=== PATIENT | male | born 1995 | race Hispanic/Latino ===

== ENCOUNTER 2016-10-07 13:38 | Emergency (ER) | payer BC ==
[2016-10-07 13:48] VITALS: RESP 18; O2SAT 99
[2016-10-07] MEDS ORDERED: Sodium Chloride 0.9% 1,000 ML IV STA (14:14)
--- NOTE | 2016-10-07 14:28 | ED PDOC ---
HPI: Hypertension/Hypotension Time Seen by Provider: 10/07/16 14:03 Chief Complaint (Nursing): Palpitations Chief Complaint (Provider): heart racing History Per: Patient History/Exam Limitations: no limitations Onset/Duration Of Symptoms: Days (about a week), Intermittent Episodes, Gradual Associated Symptoms: Dizziness. denies: Chest Pain, Dyspnea, Blurred Vision, Focal Weakness, Headache Quality Of Symptoms: Rapid Heart Rate Severity: Moderate Additional Complaint(s): Tachycardia intermittent for about a week. Had started generic version of aderrall xr (which he has been taking since 10yo) 2 weeks ago. when he stopped this medication 3 days ago, tachycardia resolved. Recurred yesterday when restarted the medication and he presented to [facility]. Blood tests performed and patient discharged. Presented to PMD's office today who sent him to ER for further evaluation, specifically concern for blood clot. 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 PMD Dr Brannon Garcia Past Medical History Reviewed: Historical Data, Nursing Documentation, Vital Signs Vital Signs: Last Vital Signs Temp 98.5 F 10/07/16 13:46 Pulse 102 H 10/07/16 13:46 Resp 18 10/07/16 13:46 BP 112/74 10/07/16 13:46 Pulse Ox 99 10/07/16 13:46 - Medical History Other PMH: ADHD - Surgical History Surgical History: No Surg Hx - Family History Family History: States: Other Other Family History: Father with blood clots - Social History Current smoker - smoking cessation education provided: No Alcohol: Social Drugs: Denies - Allergies Allergies/Adverse Reactions: Allergies Allergy/AdvReac Type Severity Reaction Status Date / Time No Known Allergies Allergy Verified 10/07/16 13:52 Review of Systems ROS Statement: Except As Marked, All Systems Reviewed And Found Negative (and as per HPI) Constitutional: Positive for: Weakness, Malaise Cardiovascular: Positive for: Palpitations, Light Headedness. Negative for: Chest Pain, Edema Respiratory: Negative for: Cough, Shortness of Breath, SOB with Exertion Physical Exam - Reviewed Nursing Documentation Reviewed: Yes Vital Signs Reviewed: Yes - Physical Exam Appears: Positive for: Non-toxic Head Exam: Positive for: NORMOCEPHALIC Skin: Positive for: Warm, Dry ENT: Negative for: Pharyngeal Erythema, Tonsillar Exudate Neck: Positive for: Painless ROM, Supple Cardiovascular/Chest: Positive for: Tachycardia (regular rhythm). Negative for : Murmur Respiratory: Positive for: Normal Breath Sounds. Negative for: Accessory Muscle Use, Rales, Wheezing, Respiratory Distress Gastrointestinal/Abdominal: Positive for: Soft. Negative for: Tenderness Back: Positive for: Normal Inspection. Negative for: Decreased ROM Extremity: Positive for: Normal ROM. Negative for: Calf Tenderness, Deformity Lymphatic: Negative for: Adenopathy Neurologic/Psych: Positive for: Alert. Negative for: Motor/Sensory Deficits - Laboratory Results Result Diagrams: 10/07/16 14:25 - ECG ECG Rhythm: Positive for: Normal ST Segment, Sinus Rhythm, Right Bundle Branch Block O2 Sat by Pulse Oximetry: 99 Pulse Ox Interpretation: Normal - Progress ED Course And Treament: Reviewed labs from ER visit to [facility]. CMP/CBC all normal. Thyroid tests were pending. Pt reports that PMD called hospital today and found out those tests were normal. Accession No. : [id number] Patient Name / ID : RORY MONIQUE / [id number] Exam Date : 10/07/2016 16:35:33 ( Approved ) Study Comment : Sex / Age : M / 20Y Creator : Brady Galvan MD Dictator : Brady Galvan MD Display Coordinator : Power Cleaner Operator : Brady Galvan MD Approver2 : Report Date : 10/07/2016 17:06:12 My Comment : PROCEDURE: CT Chest with contrast (Pulmonary Angiogram) HISTORY: tachycardia h/o hereditary coagulopathy COMPARISON: None available. TECHNIQUE: Axial computed tomography images were obtained of the chest in the pulmonary arterial phase of enhancement. Coronal and sagittal reformatted images were created and reviewed. Maximum intensity projection (MIP) reconstructed images in the following planes : Axial only Intravenous contrast dose: 90 cc Visipaque 320 Mean Hounsfield unit values in the main pulmonary artery: 211.4 Radiation dose: Total exam DLP = 387.00 mGy-cm. This CT exam was performed using one or more of the following dose reduction techniques: Automated exposure control, adjustment of the mA and/or kV according to patient size, and/or use of iterative reconstruction technique. FINDINGS: PULMONARY ARTERIES: Unremarkable. No pulmonary embolism. AORTA: No acute findings. No thoracic aortic aneurysm. LUNGS: Unremarkable. No nodule, mass or pulmonary consolidation. PLEURAL SPACES: Unremarkable. No effusion or pneuomothorax. HEART: Unremarkable. No cardiomegaly. No significant pericardial effusion. LYMPH NODES: No lymphadenopathy. BONES, CHEST WALL: Unremarkable. No fracture or destructive lesion OTHER FINDINGS: Unremarkable. IMPRESSION: Unremarkable CT pulmonary angiogram. No pulmonary embolus. Disposition - Clinical Impression Clinical Impression: Tachycardia Counseled Patient/Family Regarding: Studies Performed, Diagnosis, Need For Followup - Disposition Referrals: Remberto Garcia MD [Staff Provider] - Disposition: Routine/Home Disposition Time: 17:00 Condition: GOOD Additional Instructions: FOLLOW UP WITH DR GARCIA IN 1-2 DAYS. Instructions: Palpitations (ED), Amphetamine/Dextroamphetamine (By mouth) Forms: [facility] ED School/Work Excuse
[2016-10-07 15:25] LABS: PARTIAL THROMBOPLASTIN TIME 29.4 Seconds (25.6-37.1)
[2016-10-07 15:27] LABS: ALB/GLOB RATIO 1.7 (1.0-2.1); ALKALINE PHOSPHATASE 60 U/L (38-126); ALT/SGPT 36 U/L (21-72); AST/SGOT 24 U/L (17-59); BILIRUBIN,TOTAL 1.1 mg/dl (0.2-1.3); BLOOD UREA NITROGEN 10 mg/dl (9-20); CALCIUM 9.9 mg/dL (8.4-10.2); CARBON DIOXIDE 25 mmol/L (22-30); CHLORIDE 103 mmol/L (98-107); GFR AFRICAN-AMERICAN > 60; GLUCOSE,RANDOM 93 mg/dL (75-110); MAGNESIUM 1.9 MG/DL (1.6-2.3); PHOSPHOROUS 2.6 mg/dl (2.5-4.5); POTASSIUM 3.7 MMOL/L (3.6-5.0); SODIUM 140 mmol/l (132-148); TOTAL PROTEIN 7.8 G/DL (6.3-8.2)
[2016-10-07] MEDS ORDERED: Iodixanol 320 MG/ML 100 ML BOTTLE IV ONE (16:10)
[2016-10-07] MEDS ORDERED: Sodium Chloride 0.9% 50 ML IV ONE (16:10)
--- NOTE | 2016-10-07 17:08 | CT ---
PROCEDURE: CT Chest with contrast (Pulmonary Angiogram) HISTORY: tachycardia h/o hereditary coagulopathy COMPARISON: None available. TECHNIQUE: Axial computed tomography images were obtained of the chest in the pulmonary arterial phase of enhancement. Coronal and sagittal reformatted images were created and reviewed. Maximum intensity projection (MIP) reconstructed images in the following planes: Axial only Intravenous contrast dose: 90 cc Visipaque 320 Mean Hounsfield unit values in the main pulmonary artery: 211.4 Radiation dose: Total exam DLP = 387.00 mGy-cm. This CT exam was performed using one or more of the following dose reduction techniques: Automated exposure control, adjustment of the mA and/or kV according to patient size, and/or use of iterative reconstruction technique. FINDINGS: PULMONARY ARTERIES: Unremarkable. No pulmonary embolism. AORTA: No acute findings. No thoracic aortic aneurysm. LUNGS: Unremarkable. No nodule, mass or pulmonary consolidation. PLEURAL SPACES: Unremarkable. No effusion or pneuomothorax. HEART: Unremarkable. No cardiomegaly. No significant pericardial effusion. LYMPH NODES: No lymphadenopathy. BONES, CHEST WALL: Unremarkable. No fracture or destructive lesion OTHER FINDINGS: Unremarkable. IMPRESSION: Unremarkable CT pulmonary angiogram. No pulmonary embolus.
[2016-10-07 18:13] VITALS: BP 124/64; PULSE 82; TEMP 98.2
--- NOTE | 2016-10-08 18:01 | CARD ---
APPROVED REPORT EKG Measurement Heart [id number] PA [id number] <Conclusion> Normal sinus rhythm Biatrial enlargement Rightward axis Incomplete right bundle branch block Abnormal ECG
== END 2016-10-07 18:14 | disposition home or self-care (01) ==
LOC: H.ER 13:38
DX: R00.0 Tachycardia, unspecified (principal); I10 Essential (primary) hypertension; F90.9 Attention-deficit hyperactivity disorder, unspecified type
CPT/HCPCS: 71275; 80053; 83735; 84100; 84484; 85610; 85730; 93005; 99284; J7040; Q9967